=== PATIENT | male | born 1990 | race American Indian/Alaskan Native ===

== ENCOUNTER 2016-12-25 05:28 | Emergency (ER) | payer SELFPAY ==
[2016-12-25 05:40] VITALS: BP 117/81
[2016-12-25 06:30] LABS: Anion Gap 18 mmol/L; Blood Urea Nitrogen 16 mg/dL (9-20); Calcium 9.5 mg/dL (8.4-10.2); Carbon Dioxide 25 mmol/L (22-30); Chloride 102.2 mmol/L (98-107); Glucose 115 mg/dL (75-100); Potassium 3.8 mmol/L (3.6-5.0); Sodium 141 mmol/L (137-145)
[2016-12-25 06:36] LABS: Basophils % (Auto) 0.3 % (0.0-1.8); Hematocrit 42.5 % (35.5-45.6); Hemoglobin 13.8 gm/dl (11.8-15.2); Mean Corpuscular HGB Conc 33 % (32-34); Mean Corpuscular Hemoglobin 31 pg (28-32); Mean Corpuscular Volume 94 fl (84-94); Platelet Count 293 K/mm3 (140-440); Red Blood Count 4.52 M/mm3 (3.65-5.03); Red Cell Distribution Width 13.9 % (13.2-15.2); White Blood Count 7.2 K/mm3 (4.5-11.0)
== END 2016-12-25 06:00 | disposition left against medical advice (07) ==
LOC: ED 05:28
DX: R07.9 Chest pain, unspecified (principal); Z53.21 Procedure and treatment not carried out due to patient leaving prior to being seen by health care provider
CPT/HCPCS: 36415; 80048; 84484; 85025; 93005; 93010

== ENCOUNTER 2017-10-07 14:26 | Emergency (ER) | payer SELFPAY ==
[2017-10-07 14:46] VITALS: BP 115/74
[2017-10-07 16:34] LABS: Basophils % (Auto) 0.4 % (0.0-1.8); Eosinophils % (Auto) 0.5 % (0.0-4.3); Hematocrit 45.4 % (35.5-45.6); Hemoglobin 14.7 gm/dl (11.8-15.2); Lymphocytes # (Auto) 1.3 K/mm3 (1.2-5.4); Mean Corpuscular HGB Conc 32 % (32-34); Mean Corpuscular Hemoglobin 31 pg (28-32); Mean Corpuscular Volume 97 fl (84-94); Monocytes # (Auto) 0.4 K/mm3 (0.0-0.8); Monocytes % (Auto) 5.1 % (0.0-7.3); Platelet Count 329 K/mm3 (140-440); Red Cell Distribution Width 14.4 % (13.2-15.2)
[2017-10-07 16:40] LABS: BUN/Creatinine Ratio 15; Blood Urea Nitrogen 12 mg/dL (9-20); Hemolysis Index 14
== END 2017-10-07 23:45 | disposition left against medical advice (07) ==
LOC: ED 14:26
DX: Z53.21 Procedure and treatment not carried out due to patient leaving prior to being seen by health care provider (principal)
CPT/HCPCS: 36415; 80048; 85025; 93005; 93010; G0480; 80320

== ENCOUNTER 2018-09-29 13:08 | Emergency (ER) | payer SELFPAY ==
[2018-09-29 13:19] VITALS: BP 123/67
--- NOTE | 2018-09-29 14:08 | Emergency Department Report ---
ED Lower Extremity HPI - General Chief Complaint: Extremity Problem,Nontraumatic Stated Complaint: (L) LEG PAIN Time Seen by Provider: 09/29/18 14:02 Source: patient, family Mode of arrival: Ambulatory Limitations: No Limitations - History of Present Illness Initial Comments: This is a 28-year-old male here reports that he is having pain from his thigh down to his leg. It is located to the left thigh to leg. Pain is 6 out of 10 and crampy and he reports that his dad had similar symptoms and ended up with a blood clot. Patient is having pain in left leg and thigh on not right leg as noted on triage paperwork. I asked him twice and he confirmed that the left leg. He said this started last night and it is 3 out of 10 and feels crampy. He also reports pain extending from the left side to left ankle no exacerbating or alleviating factors. No medication taken. Denies any history of blood clots personally but history of blood clot father. Denies any clotting disorder, any recent travel for more than 4 hours by airplane or car. Denies any nausea or vomiting. Denies any numbness or tingling to extremities. Denies any history of back pain . MD Complaint: leg injury (left leg and thigh pain), other (left thigh and) -: Last night Injury: Thigh: Left (pain), Leg: Left (pain) Type of Injury: unknown Place: home Severity: mild Severity scale (0 -10): 4 Improves With: rest Worsens With: movement, palpation Context: other (unknown patient said that he walks a lot but within both legs t hen he would note that it is probably from walking too much but it is only in his left lower extremity..) Other Symptoms: other (none) Associated Symptoms: ambulatory. denies: swelling, numbness, tingling Treatments Prior to Arrival: other (none) - Related Data Previous Rx's Medication Instructions Recorded Last Taken Type Acetaminophen/Codeine 1 tab PO Q6H PRN #14 tab 11/02/14 Unknown Rx [Acetaminophen-Codeine #3 TAB] Penicillin Vk [Veetids TAB] 500 mg PO QID #40 tablet 11/02/14 Unknown Rx Ibuprofen [Motrin] 800 mg PO Q8HR PRN #12 tablet 09/29/18 Unknown Rx Allergies Allergy/AdvReac Type Severity Reaction Status Date / Time No Known Allergies Allergy Unverified 11/02/14 20:43 ED Review of Systems ROS: Stated complaint: (L) LEG PAIN Other details as noted in HPI Constitutional: denies: chills, fever Eyes: denies: eye discharge ENT: denies: ear pain, throat pain, congestion Respiratory: denies: cough, shortness of breath, wheezing Cardiovascular: denies: chest pain, palpitations, dyspnea on exertion, edema, syncope, paroxysmal nocturnal dyspnea Gastrointestinal: denies: nausea, vomiting, hematemesis, hematochezia Genitourinary: denies: hematuria Musculoskeletal: arthralgia. denies: back pain, joint swelling, myalgia Skin: denies: rash Neurological: denies: headache, weakness, numbness, paresthesias, confusion, abnormal gait, vertigo ED Past Medical Hx - Past Medical History Previous Medical History?: No Additional medical history: Dental caries/abscess - Surgical History Past Surgical History?: No - Family History Family history: hypertension - Social History Smoking Status: Current Every Day Smoker Substance Use Type: Marijuana - Medications Home Medications: Home Medications Medication Instructions Recorded Confirmed Last Taken Type Acetaminophen/Codeine 1 tab PO Q6H PRN #14 tab 11/02/14 Unknown Rx [Acetaminophen-Codeine #3 TAB] Penicillin Vk [Veetids TAB] 500 mg PO QID #40 tablet 11/02/14 Unknown Rx Ibuprofen [Motrin] 800 mg PO Q8HR PRN #12 tablet 09/29/18 Unknown Rx ED Physical Exam - General Limitations: No Limitations General appearance: alert, in no apparent distress - Head Head exam: Present: atraumatic, normocephalic, normal inspection, other (normal exam) - Eye Eye exam: Present: normal appearance, PERRL, EOMI Pupils: Present: normal accommodation - ENT ENT exam: Present: normal exam, normal orophraynx, mucous membranes moist, TM's normal bilaterally, normal external ear exam - Neck Neck exam: Present: normal inspection, full ROM. Absent: tenderness, lymphadenopathy - Respiratory Respiratory exam: Present: normal lung sounds bilaterally. Absent: respiratory distress, chest wall tenderness - Cardiovascular Cardiovascular Exam: Present: regular rate, normal rhythm, normal heart sounds - GI/Abdominal GI/Abdominal exam: Present: soft, normal bowel sounds. Absent: distended, tenderness, rigid, organomegaly, mass - Extremities Exam Extremities exam: Present: normal inspection, full ROM, normal capillary refill, other. Absent: tenderness, pedal edema, joint swelling, calf tenderness - Back Exam Back exam: Present: normal inspection, full ROM, other. Absent: tenderness, CVA tenderness (R), CVA tenderness (L), muscle spasm, paraspinal tenderness, vertebral tenderness, rash noted - Expanded Back Exam Expanded Back exam: Absent: saddle anesthesia Back exam: Negative Straight Leg Raising: Left, Right - Neurological Exam Neurological exam: Present: alert, oriented X3, normal gait, reflexes normal. Absent: motor sensory deficit - Psychiatric Psychiatric exam: Present: normal affect, normal mood - Skin Skin exam: Present: warm, dry, intact, normal color. Absent: rash ED Course Vital Signs 09/29/18 13:18 Temperature 97.9 F Pulse Rate 78 Respiratory 16 Rate Blood Pressure 123/67 O2 Sat by Pulse 99 Oximetry - Reevaluation(s) Reevaluation #1: 09/29/18 16:46 Patient given Motrin 800 mg by mouth in emergency room for pain . ED Lower Extremity MDM - Radiology Data Radiology results: report reviewed Ultrasound venous Doppler lower extremity left dictated by radiologist report. No acute findings seen. The Findings [facility] [address] [place] [address] Vascular Lab Report Signed Patient: CAESAR MOSS MR#: [id number] : 1990 Acct:[id number] Age/Sex: 28 / M ADM Date: 09/29/18 Loc: ED Attending Dr: Ordering Physician: LUCRECIA CRONIN Date of Service: 09/29/18 Procedure(s): VL venous duplex LE LT Accession Number(s): [id number] cc: LUCRECIA CRONIN FINAL REPORT EXAM: VL VENOUS DUPLEX LE LT HISTORY: pain left lower extremity TECHNIQUE: Grayscale and color and spectral Doppler ultrasound imaging of the left lower extremity was performed for the purposes of assessing for deep venous thrombosis. PRIORS: None. FINDINGS: No evidence of deep venous thrombosis is seen within the common femoral through the posterior tibial and peroneal veins. Normal compression and color flow is seen throughout the venous system of the left lower extremity. Normal augmentation was seen. IMPRESSION: Negative for left lower extremity deep venous thrombosis. Transcribed By: MG Dictated By: ELEONORA SOTO MD Electronically Authenticated By: ELEONORA SOTO MD Signed Date/Time: 09/29/18 1538 DD/ 39 TD/TT: 09/29/181539 - Medical Decision Making This is a 28-year-old male here report that he feels he has a blood clot in his left leg and he would like to get checked out because he is having pain. He said he walks a lot but if it was from the walk in to have it in both legs. Ultrasound of left lower extremity shows no DVT or SVT. This was discussed with the patient and he voiced understanding. Patient discharged home in stable condition with prescription for Motrin and to follow up with primary care physician in 2-3 days and if his symptoms worsen to return to the emergency room. - Differential Diagnosis DVT, musculoskeletal pain Critical care attestation.: If time is entered above; I have spent that time in minutes in the direct care of this critically ill patient, excluding procedure time. ED Disposition Clinical Impression: Lower extremity pain, left Disposition: DC-01 TO HOME OR SELFCARE Is pt being admited?: No Does the pt Need Aspirin: No Condition: Stable Instructions: Arthralgia (ED) Additional Instructions: Please take Motrin for pain. Follow-up with primary care physician and if he do not have a primary care physician follow-up at this outside Medical Center in 2-3 days. Prescriptions: Ibuprofen [Motrin] 800 mg PO Q8HR PRN #12 tablet PRN Reason: left leg pain Referrals: PRIMARY CAREMD [Primary Care Provider] - 2-3 Days [facility] [Outside] - 2-3 Days Forms: Work/School Release Form(ED)
[2018-09-29] MEDS ORDERED: IBUPROFEN PO ONE (14:12)
--- NOTE | 2018-09-29 15:38 | Vascular Lab Report ---
FINAL REPORT EXAM: VL VENOUS DUPLEX LE LT HISTORY: pain left lower extremity TECHNIQUE: Grayscale and color and spectral Doppler ultrasound imaging of the left lower extremity w as performed for the purposes of assessing for deep venous thrombosis. PRIORS: None. FINDINGS: No evidence of deep venous thrombosis is seen within the common femoral through the posterior tibial and peroneal veins. Normal compression and color flow is seen throughout the venous system of the lef t lower extremity. Normal augmentation was seen. IMPRESSION: Negative for left lower extremity deep venous thrombosis.
== END 2018-09-29 17:16 | disposition home or self-care (01) ==
LOC: ED 13:08
DX: M79.652 Pain in left thigh (principal); F17.200 Nicotine dependence, unspecified, uncomplicated

== ENCOUNTER 2020-02-12 20:52 | Emergency (ER) | payer SELFPAY ==
[2020-02-12 21:18] VITALS: BP 105/66
== END 2020-02-13 00:35 ==
LOC: ED 20:52
DX: S41.111A Laceration without foreign body of right upper arm, initial encounter (principal); Z53.21 Procedure and treatment not carried out due to patient leaving prior to being seen by health care provider; W25.XXXA Contact with sharp glass, initial encounter; Y93.89 Activity, other specified; Y92.89 Other specified places as the place of occurrence of the external cause; Y99.8 Other external cause status